=== PATIENT | female | born 1995 | race Caucasian/White ===

== ENCOUNTER 2021-10-22 19:41 | Outpatient (CLI) | payer OTHER | END 2021-10-22 22:31 | disposition home or self-care (01) | LOC: GENOP 19:41 | DX: O99.891 Other specified diseases and conditions complicating pregnancy (principal); R10.9 Unspecified abdominal pain; R10.2 Pelvic and perineal pain; Z88.1 Allergy status to other antibiotic agents; Z3A.26 26 weeks gestation of pregnancy | CPT/HCPCS: 81001; G0463 ==